=== PATIENT | female | born 1995 | race African-American/Black ===

== ENCOUNTER 2017-08-17 07:24 | Emergency (ER) | payer MEDICAID, SELFPAY | END 2017-08-17 07:54 | disposition home or self-care (01) | LOC: ERS 07:24 | DX: K02.9 Dental caries, unspecified (principal) | CPT/HCPCS: 99282 ==

== ENCOUNTER 2018-08-21 13:25 | Emergency (ER) | payer MEDICAID, SELFPAY ==
[2018-08-21 13:57] LABS: Bilirubin Negative (Negative); Blood, Urine Trace (Negative); Clarity Clear (Clear); Glucose, Urine (Dipstick) Negative (Negative); Leukocyte Negative (Negative); Nitrite Negative (Negative); Protein, Urine (Dipstick) Negative (Neg-Trace); Urobilinogen 0.2 mg/dL (0.2-1.0)
[2018-08-21 13:59] LABS: Hemoglobin 13.1 g/dL (12.0-16.0); Mean Corpuscular HGB CONC 32.1 g/dL (32.0-36.0); Mean Corpuscular Hemoglobin 24.7 pg (27.0-31.0); Mean Corpuscular Volume 77.1 fL (78.0-98.0); Platelet Count 252 thou/uL (130-400); RBC Distribution Width 11.9 % (11.5-14.5); Red Blood Cell (RBC) Count 5.32 mill/uL (4.20-5.40); White Blood Cell (WBC) Count 6.8 thou/uL (4.8-10.8)
[2018-08-21 14:07] LABS: Bacteria/HPF Rare-Few HPF (None Seen); RBC/HPF 0-3 HPF (0-3); WBC/HPF None Seen HPF (0-3)
[2018-08-21 14:10] LABS: #Lymphocytes 1.5 thou/uL (1.20-3.40); #Monocytes 0.5 thou/uL (0.11-0.59); #Neutrophils 4.8 thou/uL (1.40-6.50); %Basophils 0.5 % (0.0-1.0); %Eosinophils 0.2 % (0.0-10.0); %Lymphocytes 21.5 % (21.0-51.0); %Monocytes 7.5 % (0.0-10.0); %Neutrophils 70.3 % (42.0-75.0); MDiff Complete? YES; Microcytosis SLIGHT = 6-15 cells (100X) (0-5/hpf); PLT Morphology Comment Appears Adequate
[2018-08-21 14:12] LABS: ALT (SGPT) 17 U/L (8-55); AST (SGOT) 15 U/L (5-34); Albumin 4.6 g/dL (3.5-5.0); Alkaline Phosphatase 66 U/L (40-150); Anion Gap 13 mmol/L (10-20); BUN (Urea Nitrogen) 9 mg/dL (7.0-18.7); Bilirubin, Total 0.6 mg/dL (0.2-1.2); Calc. Creatinine Clearance 0 mL/min (70-130); Carbon Dioxide 23 mmol/L (22-29); Chloride 106 mmol/L (98-107); Estimated GFR-MDRD Greater than 90; Globulin 3.4 g/dL (2.4-3.5); Glucose 103 mg/dL (70-105); Potassium 3.3 mmol/L (3.5-5.1); Sodium 139 mmol/L (136-145)
--- NOTE | 2018-08-21 14:54 | ULT ---
PELVIC ULTRASOUND: Technique: Endovaginal ultrasound of pelvis performed. Indication: Early with vaginal bleeding. FINDINGS: There is evidence of an intrauterine gestational sac which measures 5 weeks 3 day gestational age. Th ere is no evidence of pole or yolk sac identified. Maternal ovaries are identified and appear u nremarkable. Color doppler with spectral analysis demonstrates blood flow. Normal follicles are seen. IMPRESSION: Intrauterine gestational sac as noted above. Recommend close follow up with serial HCG levels and fol low up ultrasound if indicated. POS: [facility]
[2018-08-24 03:19] LABS: Chlamydia by PCR Not Detected (NotDetected); GC by PCR Not Detected (NotDetected)
== END 2018-08-21 16:49 | disposition home or self-care (01) ==
LOC: SCSER 13:25
DX: O20.0 Threatened abortion (principal); O23.591 Infection of other part of genital tract in pregnancy, first trimester; Z79.899 Other long term (current) drug therapy
CPT/HCPCS: 36415; 76856; 80053; 81003; 81015; 84702; 85025; 86900; 86901; 87480; 87491; 87510; 87591; 87660

== ENCOUNTER 2018-12-05 09:34 | Outpatient (CLI) | payer BC, MEDICAID ==
--- NOTE | 2018-12-05 10:57 | ULT ---
ULTRASOUND OBSTETRICAL COMPLETE: DATE: 12/05/18 HISTORY: 23-year-old female for Z34.82, encounter for supervision of other normal in sec ond trimester. Comments: Complete anatomy sizes and dates. FINDINGS: number: Ambrosio. lie: Cephalic. Maternal cervix: 2.5 cm in length and closed. Placenta: Anterior. No placenta previa. Amniotic fluid volume: CHENCHO = 14.5 cm. heart rate: 156 bpm. The following anatomy is visualized, with no evidence of anomalies: Head, lateral ventricles, cerebellum, nose and lips, spine, upper limbs, lower limbs, four chamber he art, umbilical cord, cord insertion, stomach, kidneys, and bladder. biometry: Head circumference (HC): 18.3 cm 20w 5d Biparietal diameter (BPD): 5.0 cm 21w 1d Abdominal circumference (AC): 15.4 cm 20w 4d Femur length (FL): 3.4 cm 20w 6d Average ultrasound age (AUA): 20w 6d Estimated date of delivery (ORTIZ): 04/18/2019. Last menstrual period (LMP): 07/15/18. Gestational age by LMP: 20w 3d Estimated weight (EFW): 369 g +/- 54 g (0 lb 13 oz +/- 2 oz). IMPRESSION: 1. Live second trimester intrauterine gestation. 2. Estimated gestational age of 20 weeks, 6 days. 3. Cephalic lie. 4. No anatomical abnormalities. shun [] POS: [facility]
== END 2018-12-05 09:35 | disposition home or self-care (01) ==
LOC: BICULT 09:34
PROVIDERS: ATTEND Family Medicine
DX: Z34.82 Encounter for supervision of other normal pregnancy, second trimester (principal); Z3A.20 20 weeks gestation of pregnancy
CPT/HCPCS: 76805

== ENCOUNTER 2019-03-26 15:40 | Day surgery (SDC) | payer BC, OTHER ==
[2019-03-26 16:11] VITALS: BP 115/75; TEMP 99.3
[2019-03-26 16:12] VITALS: BMI 29.2
[2019-03-26] MEDS ORDERED: hydrALAZINE 20 MG/ML VIAL SLOW IVP PRN (16:42)
--- NOTE | 2019-03-27 07:24 | PDOC.LDHP ---
Labor and Delivery H&P Chief complaint: decreased movement HPI: Pt is a 23yo with A1DM controlled presenting for decreased movement today. Since being placed on the monitors she has been feeling baby move. denies ucx, lof, vb, tauma. Denies headache, cough, cp,sob,nausea, vmting, diarrhea, constipation, new rash , hip problems. back problems, muscle weakness, urinary urgency. PMH neg PSH neg Social hx. Denies drug etoh, tobacco use FHT baseline 140s with mod LTV, +15X15 acels, no decels vitals: 115/75 81 18 99.3 Current gestational age (weeks): 36 Current complications: gestational diabetes Current medications: pre-delia vitamins Allergies/Adverse Reactions: Allergies Allergy/AdvReac Type Severity Reaction Status Date / Time Penicillins Allergy Hives Verified 03/26/19 16:13 Social history: none - Physical Exam General: NAD, resting Heart: RRR Lungs: CTAB Abdomen: gravid Extremeties: trace edema FHT: category 1 - Assessment 23yo with iup 36wks presenting for decreased movement. fetus with category 1 tracing and reactive nst. REassurance provided. Pt discharged home with instructions to f/u with Dr Shoemaker, primary OB, as scheduled
== END 2019-03-26 18:15 | disposition home or self-care (01) ==
LOC: L&D/OP 15:40
PROVIDERS: ATTEND Family Medicine
DX: O36.8130 Decreased fetal movements, third trimester, not applicable or unspecified (principal); O24.419 Gestational diabetes mellitus in pregnancy, unspecified control; Z3A.36 36 weeks gestation of pregnancy; Z88.0 Allergy status to penicillin
CPT/HCPCS: 59025; 99282

== ENCOUNTER 2019-04-09 20:48 | Inpatient (IN) | payer BC, OTHER ==
[2019-04-09 21:18] VITALS: BMI 29.6
[2019-04-09 22:13] LABS: Amnisure Internal Control QC ACCEPTABLE (ACCEPTABLE); Amnisure Test No Membranes Rupture (No Rupture)
[2019-04-09] MEDS ORDERED: Lidocaine 1% (PF) 30 ML VIAL SC PRN (22:39)
[2019-04-09] MEDS ORDERED: Ondansetron PF 4 MG/2 ML Vial IVP PRN (22:39)
[2019-04-09] MEDS ORDERED: hydrALAZINE 20 MG/ML VIAL SLOW IVP PRN ×2 (22:39)
[2019-04-09] MEDS ORDERED: HYDROcodone/Acetaminophen 5/325 mg Tablet PO PRN ×2 (22:39)
[2019-04-09] MEDS ORDERED: NS / Oxytocin 40 units/1000ml 1,000 ML IV PRN (22:39)
[2019-04-09] MEDS ORDERED: Butorphanol Tartrate 1 MG/ML VIAL SLOW IVP PRN (22:39)
[2019-04-09] MEDS ORDERED: Ibuprofen 800 MG TAB PO PRN (22:39)
[2019-04-09] MEDS ORDERED: Promethazine HCl 25 MG/ML VIAL IM PRN (22:39)
--- NOTE | 2019-04-09 22:42 | PDOC.EVN ---
Event Note - Event Note Event Note: INTERIM H&P Courtesy admit note: Direct admit for Dr Chawla CC: CTX HPI: 23 yo at 38 weeks 2 days with CTX. Exam: VSSAFEB 6cm Assessment: Labor, GBS neg. early term. Plan: Admit to Dr Chawla
[2019-04-10 00:03] LABS: Hemoglobin 11.6 g/dL (12.0-16.0); Mean Corpuscular HGB CONC 32.8 g/dL (32.0-36.0); Mean Corpuscular Hemoglobin 25.6 pg (27.0-31.0); Mean Corpuscular Volume 77.9 fL (78.0-98.0); Mean Platelet Volume 9.8 fL (7.4-10.4); Platelet Count 199 thou/uL (130-400); Red Blood Cell (RBC) Count 4.54 mill/uL (4.20-5.40); White Blood Cell (WBC) Count 12.3 thou/uL (4.8-10.8)
[2019-04-10] MEDS ORDERED: Fentanyl 4 mcg/Bup 0.1% Cadd 100 ML ONE (00:25)
[2019-04-10 00:43] LABS: Syphilis Antibody Nonreactive (Nonreactive); Syphilis Antibody Index 0.03 S/CO (<1.00 Non-Reactive)
[2019-04-10 00:53] LABS: HBSAg Index 0.41 S/CO (0-0.99); HIV (1/2) Antibody/Antigen Non-Reactive (NonReactive); HIV 1/2 INDEX 0.12 S/CO (<1.00); Hep B Surf Ag Non-Reactive S/CO (NonReactive)
[2019-04-10] MEDS: Lactated Ringer's 1,000 ML IV SCH ×2 (01:00→02:59)
[2019-04-10] MEDS ORDERED: NS w/ Oxytocin 10 units 500 ML IVPB SCH (02:15)
[2019-04-10] MEDS ORDERED: hydrALAZINE 20 MG/ML VIAL SLOW IVP PRN (14:19)
[2019-04-10] MEDS ORDERED: Bisacodyl 10 MG SUPP PR PRN (14:19)
[2019-04-10] MEDS ORDERED: diphenhydrAMINE 25 MG CAP PO PRN (14:19)
[2019-04-10] MEDS ORDERED: Adacel (T-DAP) 0.5 ML SYRINGE IM ONE (14:19)
[2019-04-10] MEDS ORDERED: Ondansetron PF 4 MG/2 ML Vial IVP PRN (14:19)
[2019-04-10] MEDS ORDERED: Milk Of Magnesia 30 ML UDCUP PO PRN (14:19)
[2019-04-10] MEDS ORDERED: Lanolin Ointment 7 GM TUBE TOP PRN (14:19)
[2019-04-10] MEDS ORDERED: HYDROcodone/Acetaminophen 5/325 mg Tablet PO PRN ×2 (14:19)
[2019-04-10] MEDS ORDERED: NS / Oxytocin 40 units/1000ml 1,000 ML IV SCH (14:19)
[2019-04-10] MEDS ORDERED: Prenatal Vitamin 1 TAB PO SCH (14:45)
[2019-04-10] MEDS ORDERED: Ferrous Sulfate 325 MG TAB PO SCH (14:45)
[2019-04-10] MEDS ORDERED: Docusate Calcium (SURFAK) 240 MG CAP PO SCH (14:45)
[2019-04-10] MEDS: Ibuprofen 800 MG TAB PO SCH ×2 (15:04→22:25)
[2019-04-10] MEDS: Ferrous Sulfate 325 MG TAB PO SCH (17:36)
[2019-04-10] MEDS: Docusate Calcium (SURFAK) 240 MG CAP PO SCH (22:25)
[2019-04-11] MEDS: Ibuprofen 800 MG TAB PO SCH ×3 (05:23→21:31)
[2019-04-11 05:43] LABS: Mean Corpuscular HGB CONC 33.3 g/dL (32.0-36.0); Mean Platelet Volume 9.6 fL (7.4-10.4); Platelet Count 176 thou/uL (130-400); Red Blood Cell (RBC) Count 3.86 mill/uL (4.20-5.40); White Blood Cell (WBC) Count 10.6 thou/uL (4.8-10.8)
[2019-04-11] MEDS: Docusate Calcium (SURFAK) 240 MG CAP PO SCH ×2 (10:33→21:31)
[2019-04-11] MEDS: Prenatal Vitamin 1 TAB PO SCH (10:33)
[2019-04-11] MEDS: Ferrous Sulfate 325 MG TAB PO SCH ×2 (10:43→18:29)
[2019-04-12] MEDS: Ibuprofen 800 MG TAB PO SCH ×2 (05:48→14:08)
[2019-04-12] MEDS: Ferrous Sulfate 325 MG TAB PO SCH (09:21)
[2019-04-12] MEDS: Docusate Calcium (SURFAK) 240 MG CAP PO SCH (09:42)
[2019-04-12] MEDS: Prenatal Vitamin 1 TAB PO SCH (09:42)
[2019-04-12 16:04] VITALS: BP 113/53; TEMP 98.5
== END 2019-04-12 17:25 | disposition home or self-care (01) | DRG 807 ==
LOC: L&D/OP 20:48 → L&D 21:00 → 3SW 04-10 13:35
PROVIDERS: ADMIT Family Medicine; ATTEND Family Medicine
PROC: 10E0XZZ Delivery of Products of Conception, External Approach (ICD-10-PCS; principal; 2019-04-10)
PROC: 0HQ9XZZ Repair Perineum Skin, External Approach (ICD-10-PCS; 2019-04-10)
DX: O42.92 Full-term premature rupture of membranes, unspecified as to length of time between rupture and onset of labor (principal); Z37.0 Single live birth; Z3A.38 38 weeks gestation of pregnancy; O24.420 Gestational diabetes mellitus in childbirth, diet controlled; O70.0 First degree perineal laceration during delivery
CPT/HCPCS: 36415; 51702; 84112; 85027; 86780; 86850; 86900; 86901; 87340; 87389; 99285; J2001; J2590

== ENCOUNTER 2020-01-13 10:57 | Outpatient (CLI) | payer BC ==
--- NOTE | 2020-01-13 11:49 | RAD ---
RIGHT KNEE 2 VIEWS: HISTORY: Right knee pain. FINDINGS/IMPRESSION: No fracture, dislocation, or other significant acute osseous process. POS: [facility]
== END 2020-01-13 10:58 | disposition home or self-care (01) ==
LOC: BICRAD 10:57
PROVIDERS: ATTEND Family Medicine
DX: M25.561 Pain in right knee (principal)

== ENCOUNTER 2021-01-28 08:27 | Emergency (ER) | payer BC | END 2021-01-28 08:52 | disposition home or self-care (01) | LOC: ERS 08:27 | DX: R59.0 Localized enlarged lymph nodes (principal); R00.0 Tachycardia, unspecified | CPT/HCPCS: 99283 ==

== ENCOUNTER 2024-02-20 10:10 | Outpatient (CLI) | payer OTHER | END 2024-02-20 10:11 | disposition home or self-care (01) | LOC: BICULT 10:10 | PROVIDERS: ATTEND Family Medicine | DX: O09.892 Supervision of other high risk pregnancies, second trimester (principal); Z3A.26 26 weeks gestation of pregnancy | CPT/HCPCS: 76805 ==